=== PATIENT | male | born 2000 | race Caucasian/White ===

== ENCOUNTER 2022-10-23 21:11 | Emergency (ER) | payer BC, OTHER | END 2022-10-23 22:45 | disposition home or self-care (01) | LOC: JP.ED 21:11 | DX: S60.413A Abrasion of left middle finger, initial encounter (principal); S67.193A Crushing injury of left middle finger, initial encounter; M65.842 Other synovitis and tenosynovitis, left hand; Z72.0 Tobacco use; W23.1XXA Caught, crushed, jammed, or pinched between stationary objects, initial encounter | CPT/HCPCS: 73130-26-LT; 73130-LT; 99282; 99283 ==